=== PATIENT | female | born 1965 ===

== ENCOUNTER → 2019-09-18 | Outpatient (CLI) | payer BC, OTHER ==
[~2019-09-18] MED LIST: ALBU2.5V8 IH; CYCL5TAB PO; IOHEXOL 240 MG/ML 50ML VIAL. PO ONE; IOHEXOL 300 MG/ML 100ML VIAL. IV ONE; METF500T16 PO; METR250T PO; ZOLP5TAB5 PO
--- NOTE | 2019-09-18 17:17 | KCIC ---
EXAM: CT Abdomen and Pelvis with IV contrast INDICATION: Patient is complaining of pelvic pain for one week, constipation and frequent urination. Diverticulitis. Splenectomy. Cholecystectomy. Appendectomy. TECHNIQUE: Multi-detector row CT images were acquired from the lung bases through the abdomen and pelvis with the use of IV contrast. Sagittal and coronal images were acquired from the transaxial data. All CT scans performed at this facility utilize dose optimization techniques as appropriate to the exam, including the following: Automated exposure control and adjustment of the mA and/or KV according to patient size (this includes techniques or standardized protocols for targeted exams where dose is indication/reason for exam). IV CONTRAST: Administered ORAL CONTRAST: Administered COMPARISON: None FINDINGS: LOWER CHEST: Unremarkable LIVER: Fatty infiltrated. Mildly enlarged, measuring 18 cm cranial caudal extent. BILIARY SYSTEM: Cholecystectomy. Bile ducts are not dilated. PANCREAS: Absent pancreatic tail. Rest of the pancreas is unremarkable. No pancreatic ductal dilation or parenchymal atrophy. SPLEEN: Absent spleen. ADRENALS: Unremarkable KIDNEYS & URETERS: Unremarkable BLADDER: Underdistended. No obvious wall thickening or perivesical soft tissue stranding. No stones, filling defects or masses identified. REPRODUCTIVE ORGANS: Unremarkable GASTROINTESTINAL: Extensive diverticulosis and wall thickening in the sigmoid colon is present with minimal perirectal soft tissue stranding. Transverse colon also shows mild wall thickening diffusely abutting a ventral hernia mesh repair. The appendix is not seen, likely surgically absent.. MESENTERY/PERITONEUM/RETROPERITONEUM: Unremarkable VASCULAR: Unremarkable LYMPH NODES: No adenopathy OSSEOUS & SOFT TISSUES: Ventral hernia mesh repair shows mild soft tissue thickening but no fluid collection and no overlying skin thickening or fat stranding in the subcutaneous fat. Appearance favors scarring over acute inflammation. IMPRESSION: Wall thickening and hyperemia in the rectosigmoid colon is suspicious for mild acute colitis. No bowel obstruction, perforation or abscess formation. Electronically signed by: Xiang Monge MD (09/18/2019 5:14 PM) [facility]
== END | disposition home or self-care (01) ==
LOC: KCIC CT 09:31
PROVIDERS: ATTEND Family Medicine
DX: K57.30 Diverticulosis of large intestine without perforation or abscess without bleeding (principal); K76.0 Fatty (change of) liver, not elsewhere classified; R16.0 Hepatomegaly, not elsewhere classified; Z90.49 Acquired absence of other specified parts of digestive tract; Z90.81 Acquired absence of spleen
CPT/HCPCS: 74177; 82565; Q9966; Q9967

== ENCOUNTER → 2020-02-02 | Outpatient (CLI) | payer BC, OTHER ==
[~2020-02-02] MED LIST changes: +CONTRAST GIVEN. MC PRN
[2020-02-02 13:57] LABS: BASO # 0.1 x10^3/uL (0.0-0.2); BASO % 1 % (0-3); EOS # 0.1 x10^3/uL (0.0-0.7); EOS % 1 % (0-3); HEMATOCRIT 43.5 % (36.0-47.0); HEMOGLOBIN 15.4 g/dL (12.0-15.5); LYMPH % 42 % (24-48); MEAN CORPUSCULAR HEMOGLOBIN 33 pg (25-35); MEAN CORPUSCULAR HGB CONC 36 g/dL (31-37); MEAN CORPUSCULAR VOLUME 93 fL (79-100); MONO # 1.1 x10^3/uL (0.0-1.1); MONO % 9 % (0-9); NEUT # 5.6 x10^3/uL (1.8-7.7); NEUT % 47 % (31-73); PLATELET COUNT 440 x10^3/uL (140-400); RED BLOOD COUNT 4.71 x10^6/uL (3.50-5.40); RED CELL DISTRIBUTION WIDTH 13.1 % (11.5-14.5); WHITE BLOOD COUNT 11.9 x10^3/uL (4.0-11.0)
[2020-02-02 14:24] LABS: ALBUMIN 3.6 g/dL (3.4-5.0); ALBUMIN/GLOBULIN RATIO 1.2 (1.0-1.7); CALCIUM 8.8 mg/dL (8.5-10.1); CREATININE 0.6 mg/dL (0.6-1.0); GFR 104.2; POTASSIUM 4.2 mmol/L (3.5-5.1); TOTAL BILIRUBIN 0.3 mg/dL (0.2-1.0); TOTAL PROTEIN 6.7 g/dL (6.4-8.2)
--- NOTE | 2020-02-02 15:36 | RAD ---
INDICATION: Reason: DIVERTICULITIS / Spl. Instructions: INJ 75ML OMNI 300, 30 ML OMNI 240 PO / History: . Abdomen pain. COMPARISON: September 18, 2019 TECHNIQUE: Axial CT images obtained through the abdomen and pelvis with contrast One or more of the following individualized dose reduction techniques were utilized for this examination: 1. Automated exposure control; 2. Adjustment of the mA and/or kV according to patient size; 3. Use of iterative reconstruction technique. FINDINGS: moderate to severe calcific atherosclerosis.. Liver is low density. Nonspecific but can be seen with fatty infiltration. Postcholecystectomy changes. No peripancreatic fluid collection. There is some mild indistinctness of fat adjacent to the pancreas. No spleen is visualized with some surgical clips. Urinary bladder has minimal urine within it at time of exam. Low-density lesion left kidney measuring up to about 9 mm. May be cystic in nature. No hydronephrosis. Colonic diverticulosis. Appendix not well seen. Anterior abdominal wall hernia mesh. Degenerative changes of spine with multilevel central canal and neural foraminal stenosis. IMPRESSION: * There is some indistinctness in the fat adjacent to the pancreas. Would correlate with symptoms and laboratory markers to ensure that this is not from a pathologic process such as mild pancreatitis. * Colonic diverticulosis with some prominence of the wall the colon within the sigmoid region. There is not definitive adjacent inflammatory changes at this time. Could be secondary to a region of contraction but mild diverticulitis or a region of narrowing is not excluded given this finding. * The liver is low density. Nonspecific but can be seen with fatty infiltration. Electronically signed by: Eliseo Love MD (02/02/2020 3:32 PM) [id number]
== END | disposition home or self-care (01) ==
LOC: CT 13:27
PROVIDERS: ATTEND Internal Medicine Gastroenterology
DX: K76.0 Fatty (change of) liver, not elsewhere classified (principal); K57.30 Diverticulosis of large intestine without perforation or abscess without bleeding; K43.9 Ventral hernia without obstruction or gangrene; K57.32 Diverticulitis of large intestine without perforation or abscess without bleeding; K85.90 Acute pancreatitis without necrosis or infection, unspecified; I70.0 Atherosclerosis of aorta
CPT/HCPCS: 36415; 74177; 80053; 85025; Q9966; Q9967